=== PATIENT | female | born 1975 | race Caucasian/White ===

== ENCOUNTER → 2016-09-13 | Day surgery (SDC) | payer OTHER ==
[~2016-09-13] MED LIST: ACETAMINOPHEN/HYDROcodone 325 MG/5 MG TAB ONE; AMOX500T PO; BENZ100 PO; BUPIVACAINE/EPINEPHRINE 0.25% PF 10 ML VIAL ONE; DUONI NEB; FISH1000 PO; KETOROLAC TROMETHAMINE 30 MG/ML (IVP) VIAL IV PUSH ONE; LACTATED RINGER'S 1000 ML INJ 1,000 ML ONE; LIDOCAINE 1%/EPINEPHrine 1:100,000 SOLN 20 ML VIAL ONE; MIDAZOLAM HCL 2 MG/2 ML VIAL ONE; MONT10TA2 PO; MULT-65 PO; ONDANSETRON HCL 4 MG/2 ML VIAL IV PUSH ONE; PROPOFOL 200 MG/20 ML AMP IV ONE; ceFAZolin 2 GM PREMIX 50 ML ONE; traMADol HCL 50 MG TAB ONE
--- NOTE | 2016-09-13 17:50 | TN ---
cc: JOSETTE KEANE M.D. DATE OF SURGERY 09/13/2016 PREOPERATIVE DIAGNOSIS Umbilical incisional hernia. POSTOPERATIVE DIAGNOSES 1. Umbilical incisional hernia. 2. Epigastric supraumbilical hernia. PROCEDURE Open repair umbilical incisional and super umbilical epigastric hernia with mesh. SURGEON Dr. Josette Keane BRANCH OPERATIONS SPECIALIST [place] ANESTHESIA General. INDICATION This is a 41-year-old woman who had previous history of laparoscopic cholecystectomy. During a move she did a lot of strenuous abdominal activity and developed a discomfort and bulge in the umbilical position. Exam findings were consistent with a umbilical incisional hernia. INTRAOPERATIVE FINDINGS About a 4 cm umbilical incisional defect with about a 2 cm bridge of fascia and then an additional 2 cm supraumbilical epigastric hernia defect with preperitoneal fat. ESTIMATED BLOOD LOSS Less than 25 ml. DESCRIPTION OF PROCEDURE IN DETAIL The patient identified as Cindi uKnz taken to the operating room and placed in the supine position. Sequential compression devices were placed on bilateral lower extremities. Following induction of adequate general endotracheal anesthesia the patient's abdomen was prepped and draped in usual sterile fashion with Betadine. A time-out procedure was performed. Following completion time-out procedure to everyone's satisfaction within the room, the area of proposed incision in the supraumbilical location and in the periumbilical area was infiltrated local anesthetic. Incision was carried out with scalpel in a transverse fashion supraumbilically. Hemostasis controlled with electrocautery. Dissection continued posteriorly until hernia sac and herniated preperitoneal fatty tissue was identified and reduced from surrounding subcutaneous tissue. The umbilical skin was lifted up off the abdominal wall. A bridge of fascia above the umbilical incisional hernia defect was identified and then a second area of herniated preperitoneal fatty tissue was identified and from surrounding subcutaneous fatty tissue. The bridge was divided and all the herniated contents were able to be reduced. The fascia anteriorly was circumferentially cleared of subcutaneous fatty tissue using electrocautery. The hernia defect which was now one was then closed with multiple interrupted inverted 0 Prolene sutures. A 3 x 6 inch piece of Atrium ProLite mesh was decreased in length by about 2 cm and was placed in the onlay position. It was held in position with multiple interrupted 0 Ethibond sutures making the mesh taut in the onlay position. Copious irrigation ensued. The deep subcutaneous fatty tissue layer was approximated with multiple interrupted 2-0 Vicryl sutures. Superficial subcutaneous fatty layer was approximated with interrupted 2-0 Vicryl suture adjacent to the umbilicus. The umbilicus was reformed with two interrupted 2-0 Vicryl sutures. Skin incision was approximated with running 4-0 Monocryl subcuticular suture. Dressings were applied with Mastisol and one-half inch brown Steri-Strips, gauze within the umbilicus over the incision and a Tegaderm. An abdominal binder was placed. The patient tolerated the procedure without apparent complication. Sponge, needle, and instrument counts were correct at the end of the case. This procedure was assisted by my nurse practitioner. The skill set of an INTERNATIONAL ACCOUNT EXECUTIVE was medically necessary to facilitate adequate visualization and facilitate efficiency in the operating room. During the procedure the rn medical surgical was at the back table providing appropriate instrumentation while the nurse practitioner was assisting me directly through the entirety of the procedure. MD KELLY Lind/CARL /5:20 PM /5:31 PM
== END | disposition home or self-care (01) ==
LOC: ESDC 10:38
PROVIDERS: ATTEND Surgery Trauma Surgery
DX: K42.9 Umbilical hernia without obstruction or gangrene (principal)
CPT/HCPCS: 00750; 49585; C1781; J0690; J1885; J2250; J2405; J3010; J7120